=== PATIENT | female | born 1950 | race Caucasian/White ===

== ENCOUNTER 2016-08-31 16:09 | Inpatient (IN) | payer MEDICARE, BC ==
[~2016-08-31] VITALS: Ht 160 cm; Wt 48.0 kg
[~2016-08-31 16:09] MED LIST: ADV25050 INH; ALPR0.5T6 PO; ATOR10TA65 PO; BUPR1FIL3 SL; CALC-176 PO; CARI350T PO; CYCL1DRO OP; DULO60CA6 PO; IBUP800T25 PO; MONT10TA24 PO; MULT-552 PO; OMEG100016 PO; OMEP20CA9 PO; PRED20TA PO; PRIM250T37 PO; RALO60TA12 PO; THEOPHYLLINE PO; TIOT18CA IH; ZOLP5TAB7 PO
[2016-08-31] MEDS ORDERED: SOD CHLORIDE 0.9% 500 ML IV STA (16:36)
[2016-08-31] MEDS ORDERED: METHYLPREDNISOLONE 125 MG INJ IV STA (16:36)
[2016-08-31] MEDS ORDERED: ALBUTEROL 0.5% (NEB) 2.5 MG/0.5 ML AMP INH STA (16:36)
[2016-08-31] MEDS ORDERED: ALPR0.25 PO (16:57)
[2016-08-31] MEDS ORDERED: BUPR1FIL3 SL (16:58)
[2016-08-31] MEDS ORDERED: IBUP800T25 PO (16:59)
[2016-08-31 17:08] LABS: ADD SCAN DIFF NO
[2016-08-31 17:10] LABS: BASOPHILS % 0.5 % (0.0-2.0); EOSINOPHILS # 0.1 10^3/ul (0.0-0.5); EOSINOPHILS % 1.5 % (0.0-7.0); HEMATOCRIT 41.3 % (37.0-47.0); HEMOGLOBIN 14.2 g/dl (12.0-16.0); LYMPHOCYTES # 1.1 10^3/ul (0.8-2.9); LYMPHOCYTES % 14.1 % (15.0-51.0); MEAN CORPUSCULAR HEMOGLOBIN 33.7 pg (29.0-33.0); MEAN CORPUSCULAR HGB CONC 34.4 g/dl (32.0-37.0); MEAN CORPUSCULAR VOLUME 98.1 fl (82.0-101.0); MEAN PLATELET VOLUME 10.5 fl (7.4-10.4); MONOCYTES % 12.9 % (0.0-11.0); NEUTROPHIL # 5.5 10^3/ul (1.6-7.5); NEUTROPHILS % 69.2 % (39.0-77.0); PLATELET COUNT 206 10^3/UL (140-415); RED BLOOD COUNT 4.21 10^6/ul (4.20-5.40); RED CELL DISTRIBUTION WIDTH 13.2 % (11.5-14.5); WHITE BLOOD COUNT 7.9 10^3/ul (4.8-10.8)
[2016-08-31 17:21] LABS: CHLORIDE 95 mmol/L (97-110); POTASSIUM 3.9 mmol/L (3.5-5.1); SODIUM 133 mmol/L (135-144)
[2016-08-31 17:24] LABS: ANION GAP 17 (8-16); CARBON DIOXIDE 25 mmol/L (21-31); CREATININE 0.62 mg/dl (0.44-1.00)
[2016-08-31 17:25] LABS: BLOOD UREA NITROGEN 19 mg/dl (7-20); CALCIUM 9.2 mg/dl (8.4-10.2); GLUCOSE 109 mg/dl (70-220)
--- NOTE | 2016-08-31 17:31 | RADRPT ---
PROCEDURE: XR Chest. CLINICAL INDICATION: Chronic obstructive pulmonary disease. Asthma exacerbation TECHNIQUE: Portable AP semi erect view of the chest was obtained. COMPARISON: CT chest 11/22/2015 FINDINGS: The cardiomediastinal silhouette is within upper normal limits. Diffuse right lung infiltrates bear ing portion of the upper lobe is similar to the prior study with development of a left lower lobe in filtrate compared to the prior study concerning for pneumonia superimposed upon centrilobular emphys michael, hyperinflation of the lungs again identified. There is no evidence of pleural effusion or pneu mothorax. The osseous structures are intact with no evidence for acute abnormality. Calcification o f the aorta is again visible. RPTAT:HJJR IMPRESSION: Bilateral pulmonary infiltrates superimposed upon emphysema, the left lung infiltrate is new compare d to the CT of 11/22/2015 and cannot exclude bilateral pneumonia. Follow-up evaluation after medical therapy is recommended. Physician Akira Date Time Electronically viewed and signed by Ryan Klein Physician on 08/31/2016 17:31 JR/
[2016-08-31 17:34] LABS: B-TYPE NATRIURETIC PEPTIDE 546 PG/ML (0-125)
[2016-08-31 17:44] LABS: TROPONIN-I < 0.012 ng/ml (0.00-0.12)
[2016-08-31] MEDS ORDERED: CEFTRIAXONE 1 GM/50 ML (PMX) 50 ML IVPB STA (18:22)
[2016-08-31] MEDS ORDERED: AZITHROMYCIN 500MG/NS (PMX) 250 ML IV STA (18:22)
[2016-08-31] MEDS ORDERED: ACETAMINOPHEN 325 MG TAB PO PRN (20:00)
[2016-08-31] MEDS ORDERED: ONDANSETRON 4 MG INJ IV PRN (20:00)
--- NOTE | 2016-08-31 20:10 | ERA ---
ER Documentation Chief Complaint Date/Time DATE: 08/31/16 TIME: 20:04 Chief Complaint LOW O2 77% ON 5L NC, SENT FROM DR. ANDRE OFFICE. HX COPD HPI This is a 66-year-old female with a history of COPD and neurofibromatosis that was sent from her primary care doctor's office, Dr. Montes. The patient was having upper respiratory symptoms of difficulty breathing and had an oxygen saturation of 71% in the office. Patient's been having no chest pain or fever but has had a chronic cough that seems to be worse and is nonproductive. She says she has feels generalized weakness and some mild decrease in appetite. No hemoptysis, no abdominal pain vomiting diarrhea a decreased urine output. She does say that the breathing gets worse when she ambulates. ROS All systems reviewed and are negative except as per history of present illness. Medications Home Meds Reported Medications Ibuprofen* (Motrin*) 800 Mg Tab, 800 MG PO QAM Y for PAIN, TAB 08/31/16 Buprenorphine Hcl-Naloxone Hcl (Suboxone SL) 8-2 Mg Film, 1 FILM SL BID, FILM 08/31/16 Alprazolam* (Xanax*) 0.25 Mg Tablet, 0.25 MG PO QHS Y for ANXIETY, TAB 08/31/16 [place]-3 Fatty Acids ([place]-3) 1,000 Mg Capsule, 1000 MG PO DAILY 03/06/14 Calcium Cmb 2-Mag Cmb 12-Vit D3 (Calcium 500) 1 Each Tablet, 1 TAB PO BID, TAB 03/06/14 Multivitamins* (Once Daily*) 1 Tab Tablet, 1 TAB PO DAILY, TAB 03/06/14 Carisoprodol* (Soma*) 350 Mg Tablet, 350 MG PO QID Y for MUSCLE SPASMS, TAB 03/06/14 Zolpidem Tartrate* (Zolpidem Tartrate*) 5 Mg Tablet, 5 MG PO HS Y, TAB 03/06/14 Omeprazole* (Prilosec*) 20 Mg Capsule., 20 MG PO DAILY, CAP 03/06/14 Montelukast Sodium* (Montelukast Sodium*) 10 Mg Tablet, 10 MG PO HS, TAB 03/06/14 Atorvastatin Calcium (Atorvastatin Calcium) 10 Mg Tab, 10 MG PO HS, TAB 03/06/14 Primidone* (Mysoline*) 250 Mg Tablet, 250 MG PO QHS, TAB 03/06/14 Raloxifene Hcl* (Evista*) 60 Mg Tablet, 60 MG PO DAILY, TAB 03/06/14 Duloxetine Hcl* (Cymbalta*) 60 Mg Capsule.dr, 60 MG PO DAILY, CAP 03/06/14 Tiotropium [place]* (Spiriva*) 18 Mcg Cap.w.dev, 1 INH IH QHS, EA 03/06/14 Salmeterol Xinaf/Fluticasone* (Advair*) 250-50 Diskus Inhaler, 1 INH INH BID, INH 03/06/14 Cyclosporine (RESTASIS) 1 Each Droperette, 1 EACH OP BID 05/16/13 Discontinued Reported Medications Alprazolam* (Alprazolam*) 0.5 Mg Tablet, 0.5 MG PO QHS, TAB 11/21/15 Ibuprofen* (Motrin*) 800 Mg Tab, 800 MG PO BID Y for PAIN, TAB 03/06/14 Buprenorphine Hcl-Naloxone Hcl (Suboxone SL) 8-2 Mg Film, 2 FILM SL BID, FILM 03/06/14 Discontinued Scripts [Theophylline (Sr)] 300 MG TABSR No Conflict Check, 300 MG PO QHS for 30 Days, 2 Refills Prov:JOSE MONTES MD 11/25/15 Prednisone (Prednisone) 20 Mg Tab, 40 MG PO DAILY for 14 Days, TAB Prov:JOSE MONTES MD 11/25/15 Allergies Allergies: Coded Allergies: No Known Allergy (Unverified , 08/31/16) PMhx/Soc History of Surgery: Yes (1981, 2005) Anesthesia Reaction: No Hx Neurological Disorder: Yes (neurofibromatosis) Hx Respiratory Disorders: Yes (COPD) Hx Cardiac Disorders: No Hx Psychiatric Problems: No Hx Miscellaneous Medical Probl: No Hx Alcohol Use: No Hx Substance Use: No Hx Tobacco Use: No Smoking Status: Never smoker FmHx Family History: No coronary disease Physical Exam Vitals Vital Signs Date Time Temp Pulse Resp B/P Pulse Ox O2 Delivery O2 Flow Rate FiO2 08/31/16 17:08 Non Rebreather 15 08/31/16 16:45 66 26 100 Non Rebreather Mask 15.0 08/31/16 16:16 97.7 87 30 113/62 77 Physical Exam Const: Well-developed, well-nourished Head: Atraumatic, normocephalic Eyes: Normal Conjunctiva, PERRLA, EOMI, normal sclera, no nystagmus ENT: Normal External Ears, Nose and Mouth, moist mucus membranes. Neck: Full range of motion. No meningismus, no lymphadenopathy. Resp: Decreased breath sounds throughout both lung chirinos consistent with emphysema, she is currently on a nonrebreather says she feels much better] Cardio: Regular rate and rhythm, no murmurs, S1 S2 present Abd: Soft, non tender x 4, non distended. Normal bowel sounds, no guarding or rebound, no pulsitile abdominal masses or bruits Skin: No petechiae or rashes, no ecchymosis , no maculopapular rash, scattered neurofibromatosis nodules Back: No midline or flank tenderness Ext: No cyanosis, or edema, FROM x 4, normal inspection, neurovascularly intact x 4 Neur: Awake and alert, STR 5/5 x 4, sensation intact x 4, no focal findings, cerebellum intact Psych: Normal Mood and Affect Result Diagram: 08/31/16 1656 08/31/16 1656 Results 24 hrs Laboratory Tests Test 08/31/16 16:56 White Blood Count 7.910^3/ul Red Blood Count 4.2110^6/ul Hemoglobin 14.2g/dl Hematocrit 41.3% Mean Corpuscular Volume 98.1fl Mean Corpuscular Hemoglobin 33.7pg Mean Corpuscular Hemoglobin Concent 34.4g/dl Red Cell Distribution Width 13.2% Platelet Count 09121^3/UL Mean Platelet Volume 10.5fl Neutrophils % 69.2% Lymphocytes % 14.1% Monocytes % 12.9% Eosinophils % 1.5% Basophils % 0.5% Nucleated Red Blood Cells % 0.0/100WBC Neutrophils # 5.510^3/ul Lymphocytes # 1.110^3/ul Monocytes # 1.010^3/ul Eosinophils # 0.110^3/ul Basophils # 0.010^3/ul Nucleated Red Blood Cells # 0.010^3/ul Sodium Level 133mmol/L Potassium Level 3.9mmol/L Chloride Level 95mmol/L Carbon Dioxide Level 25mmol/L Anion Gap 17 Blood Urea Nitrogen 19mg/dl Creatinine 0.62mg/dl Glucose Level 109mg/dl Calcium Level 9.2mg/dl Troponin I < 0.012ng/ml B-Type Natriuretic Peptide 546PG/ML Current Medications Medications (Trade) Dose Ordered Sig/Adela Route PRN Reason Start Time Stop Time Status Last Admin Dose Admin Sodium Chloride (NS) 500 ml @ 500 mls/hr Q1H STAT IV 08/31/16 16:36 08/31/16 17:35 DC 08/31/16 17:00 Albuterol (Proventil 0.5% (Neb)) 10 mg ONCE STAT INH 08/31/16 16:36 08/31/16 16:39 DC 08/31/16 16:43 Methylprednisolone Sodium Succinate 125 mg 125 mg ONCE STAT IV 08/31/16 16:36 08/31/16 16:39 DC 08/31/16 17:01 Azithromycin 250 ml @ 250 mls/hr ONCE STAT IV 08/31/16 18:22 08/31/16 19:21 DC Ceftriaxone Sodium (Rocephin) 50 ml @ 100 mls/hr ONCE STAT IVPB 08/31/16 18:22 08/31/16 18:51 DC 08/31/16 19:29 Ondansetron HCl (Zofran Inj) 4 mg ER BRIDGE PRN IV NAUSEA AND/OR VOMITING 08/31/16 20:00 09/01/16 19:59 Acetaminophen (Tylenol Tab) 650 mg ER BRIDGE PRN PO MILD PAIN/FEVER 08/31/16 20:00 09/01/16 19:59 Procedures/MDM PROCEDURE: XR Chest. CLINICAL INDICATION: Chronic obstructive pulmonary disease. Asthma exacerbation TECHNIQUE: Portable AP semi erect view of the chest was obtained. COMPARISON: CT chest 11/22/2015 FINDINGS: The cardiomediastinal silhouette is within upper normal limits. Diffuse right lung infiltrates bearing portion of the upper lobe is similar to the prior study with development of a left lower lobe infiltrate compared to the prior study concerning for pneumonia superimposed upon centrilobular emphysema, hyperinflation of the lungs again identified. There is no evidence of pleural effusion or pneumothorax. The osseous structures are intact with no evidence for acute abnormality. Calcification of the aorta is again visible. RPTAT:HJJR IMPRESSION: Bilateral pulmonary infiltrates superimposed upon emphysema, the left lung infiltrate is new compared to the CT of 11/22/2015 and cannot exclude bilateral pneumonia. Follow-up evaluation after medical therapy is recommended. Ryan Klein Physician Date Time Electronically viewed and signed by Ryan Klein Physician on 08/31/2016 17:31 JR/ CC: MENDOZA BAUTISTA DO Patient was given an hour-long 10 mg albuterol nebulizer. After this I was able to wean her off of the nonrebreather she is currently on a nasal cannula 3 L with oxygen saturations of 93-94%. She is not in any respiratory distress that she feels much better. She does however have bilateral patchy infiltrates consistent with pneumonia. She has had blood cultures and antibiotics have been given She is very well-appearing vital signs are stable. She is not toxic or septic appearing and does not meet sepsis criteria Spoke with her primary care physician and we will admit to the hospital Departure Diagnosis: Primary Impression: Community acquired pneumonia Condition: Stable MENDOZA BAUTISTA DO Aug 31, 2016 20:10
[2016-08-31 21:04] VITALS: TEMP 97.7
[2016-08-31] MEDS: AZITHROMYCIN 500MG/NS (PMX) 250 ML IV SCH (22:00)
[2016-08-31] MEDS: SALMETEROL/FLUTICASONE 250/50 INHA INH SCH (22:00)
[2016-08-31] MEDS ORDERED: [UNRECOGNIZED DRUG - OTHER] SL SCH (22:00)
[2016-08-31] MEDS ORDERED: NACL 0.9% 3 ML SYG IV SCH (22:00)
[2016-08-31] MEDS: CEFTRIAXONE 1 GM/50 ML (PMX) 50 ML IV SCH (22:00)
[2016-08-31] MEDS ORDERED: SODIUM CHLORIDE 0.9% 1L BAG IV SCH (22:00)
[2016-08-31 22:50] VITALS: PULSE 75
[2016-08-31 22:51] VITALS: Ht 160 cm; Wt 48.0 kg
[2016-08-31 22:56] VITALS: BP 128/63; PULSE 77; RESP 22
[2016-08-31] MEDS: HEPARIN 5,000 UNIT/0.5 ML VIAL SC SCH (23:28)
[2016-09-01] VITALS (13 sets, daily range): BP systolic 102–109; BP diastolic 55–62; PULSE 62–75; RESP 17–20
[2016-09-01] MEDS: ALPRAZOLAM 0.25 MG TAB PO PRN (00:32)
[2016-09-01] MEDS: ALBUTEROL/IPRATROPIUM (NEB) 3 ML AMP NEB SCH ×6 (01:00→20:42)
[2016-09-01 07:26] LABS: ADD SCAN DIFF NO
[2016-09-01 07:54] LABS: ALBUMIN 3.1 g/dl (3.3-4.9); ALBUMIN/GLOBULIN RATIO 0.96; BILIRUBIN,INDIRECT 0.1 mg/dl (0-1.1); BILIRUBIN,TOTAL 0.1 mg/dl (0.2-1.3); CALCIUM 8.3 mg/dl (8.4-10.2); CREATININE 0.45 mg/dl (0.44-1.00); POTASSIUM 4.2 mmol/L (3.5-5.1); TOTAL PROTEIN 6.3 g/dl (6.1-8.1)
[2016-09-01] MEDS: MULTIVITAMINS THERAPEUTIC TAB PO SCH (08:54)
[2016-09-01] MEDS: FAMOTIDINE 20 MG TAB PO SCH ×2 (08:55→20:52)
[2016-09-01] MEDS: CYCLOSPORINE 0.05% OPH DROPERETTE BOTH EYES SCH ×2 (08:57→20:55)
[2016-09-01] MEDS: SALMETEROL/FLUTICASONE 250/50 INHA INH SCH ×2 (08:57→20:54)
[2016-09-01] MEDS: predniSONE 20 MG TAB PO SCH (08:58)
[2016-09-01] MEDS: DULOXETINE 30 MG CAP DR PO SCH (08:58)
[2016-09-01] MEDS: RALOXIFENE 60 MG TAB PO SCH (08:58)
[2016-09-01] MEDS ORDERED: FISH OIL 1,000 MG CAP PO SCH (09:00)
[2016-09-01] MEDS ORDERED: OMEGA PO SCH (09:00)
[2016-09-01] MEDS ORDERED: FATTY ACIDS PO SCH (09:00)
[2016-09-01] MEDS: HEPARIN 5,000 UNIT/0.5 ML VIAL SC SCH ×2 (09:02→21:25)
[2016-09-01] MEDS: CARISOPRODOL 350 MG TAB PO PRN ×2 (10:57→21:09)
[2016-09-01 11:09] LABS: BASOPHIL # 0.1 10^3/ul (0.0-0.1); BASOPHILS % 0.8 % (0.0-2.0); EOSINOPHILS # 0.1 10^3/ul (0.0-0.5); EOSINOPHILS % 0.8 % (0.0-7.0); HEMATOCRIT 37.8 % (37.0-47.0); HEMOGLOBIN 12.9 g/dl (12.0-16.0); LYMPHOCYTES # 1.4 10^3/ul (0.8-2.9); LYMPHOCYTES % 22.3 % (15.0-51.0); MEAN CORPUSCULAR HEMOGLOBIN 33.6 pg (29.0-33.0); MEAN CORPUSCULAR HGB CONC 34.1 g/dl (32.0-37.0); MEAN CORPUSCULAR VOLUME 98.4 fl (82.0-101.0); MEAN PLATELET VOLUME 10.9 fl (7.4-10.4); MONOCYTE # 0.6 10^3/ul (0.3-0.9); MONOCYTES % 10.1 % (0.0-11.0); NEUTROPHIL # 3.9 10^3/ul (1.6-7.5); NEUTROPHILS % 63.7 % (39.0-77.0); PLATELET COUNT 188 10^3/UL (140-415); RED BLOOD COUNT 3.84 10^6/ul (4.20-5.40); RED CELL DISTRIBUTION WIDTH 13.3 % (11.5-14.5); WHITE BLOOD COUNT 6.1 10^3/ul (4.8-10.8)
--- NOTE | 2016-09-01 15:01 | HP ---
DATE OF ADMISSION: 08/31/2016 HISTORY OF PRESENT ILLNESS: This is one of many [facility] admissions for this 66 -year-old, , right-handed female. She has a history of chronic obstructive pulmona ry disease as well as neurofibromatosis. She had been in her usual state of health until roughly 3 to 4 days prior to admission, when she developed worsening cough with low-grade fevers. The cough i s nonproductive, but she has developed much more weakness. She is somewhat a stoic historian and moreno richey did admit that she was feeling a bit weaker than typical and short of breath. Pulse oximet ry in my office was 71%. She was transferred over to the emergency room where she is found to have pneumonia. PAST MEDICAL HISTORY: 1. Bullous emphysematous chronic obstructive pulmonary disease. 2. History of right lung pneumonia with effusion in 11/2012. 3. History of pneumonia 2015. 4. Osteoporosis. 5. Osteoarthritis/DJD. 6. Status post lumbar spine laminectomy L4 to L5. 7. Status post anterior and posterior lumbar spine fusion L4 to L5. 8. Status post removal of hardware from the lumbar spine 2007. 9. Status post cervical spine fusion at C6 to C7. 10. Neurofibromatosis type 1. 11. G1, P1, AB 0. 12. Usual childhood diseases. 13. History of varicella. 14. Chronic pain syndrome. 15. Benzodiazepine dependency. HABITS: She had previously smoked, but quit in 2002. No alcohol, no history of IV drugs. SOCIAL HISTORY: She was born in [place] and raised there. 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 She has been for 44 years and lives with her spouse. VACCINES: She had pneumococcal vaccine in 2010 and tetanus vaccine in 2013. FAMILY HISTORY: Negative for coronary artery disease, negative for hypertension, positive for neuro fibromatosis, negative for diabetes, negative for COPD, and negative for asthma. MEDICATIONS: Her outpatient medication regimen is: 1. Alprazolam 0.25 at bedtime. 2. Atorvastatin 10 mg a day. 3. Suboxone 8 films b.i.d. 4. Calcium with D twice a day. 5. Soma 350 p.r.n. 6. Cyclosporine eyedrops 1 drop in each eye b.i.d. 7. Cymbalta 60 mg a day. 8. Ibuprofen 800 p.r.n. 9. Montelukast 10 mg a day. 10. Advair 250/50 b.i.d. 11. Spiriva 18 mcg once a day. 12. Multivitamins once a day. 13. [place]-3 fish oil 1 gram daily. 14. Omeprazole 20 mg a day. 15. Mysoline 250 at bedtime. 16. Evista 60 mg a day. 17. Ambien 5 mg p.r.n. PHYSICAL EXAMINATION: GENERAL: At time of physical exam, she is a dignified female who appears in some distress and does not appear herself. VITAL SIGNS: She had a temperature of 98.2, pulse of 68, respirations were 24 prior to breathing tr eatment, blood pressure 106/59. HEENT: NC/AT; PERRL, EOMI, anicteric, fundi were not visualized. Tympanic membranes were without n ote. Oropharynx demonstrates no lesions. NECK: Supple. There is a midline trachea. There is no thyromegaly; pulses are 2+ without bruits RESPIRATORY: Demonstrates an increased AP diameter, decreased I:E ratio, expanded airspaces, some c rackles in the right mid lung field and decreased air movement versus her baseline. CARDIAC: Demonstrates no visible JVD, a regular rate and rhythm. PMI is discrete but medially and caudally displaced. ABDOMEN: Soft, nontender, active bowel sounds. No hepatosplenomegaly. No CVA tenderness. No morelia ias. No bruits. EXTREMITIES: Demonstrate no clubbing, cyanosis, or edema. LABORATORY DATA: Please see the chest x-ray report and the blood test reports. ASSESSMENT AND PLAN: 1. Bullous emphysema - chronic obstructive pulmonary disease, pink puffer type. She comes in with pneumonia which is exacerbating her breathing issues. She will be given steroids, breathing treatme nts, aggressive antibiotics and oxygen supplementation. She is not stable to go home at the present time. 2. Neurofibromatosis type 1. This is noted. 3. Chronic pain syndrome. She will be continued on her pain relieving medication regimen. Dictated By: JOSE GIL MD, JR/DEVIN Conf#: [id number] DID#: [id number]
[2016-09-01] MEDS: ATORVASTATIN 10 MG TAB PO SCH (20:51)
[2016-09-01] MEDS: MONTELUKAST 10 MG TAB PO SCH (20:52)
[2016-09-01] MEDS: FISH OIL 1,000 MG CAP PO SCH (20:52)
[2016-09-01] MEDS: CALCIUM/VITAMIN D (500/200) TAB PO SCH (20:52)
[2016-09-01] MEDS: THEOPHYLLINE (SR) 200 MG CAPSR PO SCH (20:53)
[2016-09-01] MEDS: TIOTROPIUM 18 MCG CAPSULE INHA DEV INH SCH (20:54)
[2016-09-01] MEDS: PRIMIDONE 250 MG TAB PO SCH (21:01)
[2016-09-01] MEDS: AZITHROMYCIN 500MG/NS (PMX) 250 ML IV SCH (21:09)
[2016-09-01] MEDS: CEFTRIAXONE 1 GM/50 ML (PMX) 50 ML IV SCH (22:47)
[2016-09-02] VITALS (12 sets, daily range): BP systolic 104–131; BP diastolic 58–72; PULSE 63–88; RESP 19–20
[2016-09-02] MEDS: ALPRAZOLAM 0.25 MG TAB PO PRN ×2 (00:10→21:43)
[2016-09-02] MEDS: ALBUTEROL/IPRATROPIUM (NEB) 3 ML AMP NEB SCH ×6 (00:57→21:00)
[2016-09-02] MEDS: FISH OIL 1,000 MG CAP PO SCH ×2 (09:05→21:41)
[2016-09-02] MEDS: SALMETEROL/FLUTICASONE 250/50 INHA INH SCH ×2 (09:05→21:38)
[2016-09-02] MEDS: MULTIVITAMINS THERAPEUTIC TAB PO SCH (09:05)
[2016-09-02] MEDS: predniSONE 20 MG TAB PO SCH (09:05)
[2016-09-02] MEDS: FAMOTIDINE 20 MG TAB PO SCH ×2 (09:06→21:41)
[2016-09-02] MEDS: CALCIUM/VITAMIN D (500/200) TAB PO SCH ×2 (09:06→21:41)
[2016-09-02] MEDS: DULOXETINE 30 MG CAP DR PO SCH (09:06)
[2016-09-02] MEDS: HEPARIN 5,000 UNIT/0.5 ML VIAL SC SCH ×2 (09:20→21:55)
[2016-09-02] MEDS: CARISOPRODOL 350 MG TAB PO PRN ×2 (09:21→21:42)
[2016-09-02] MEDS: CYCLOSPORINE 0.05% OPH DROPERETTE BOTH EYES SCH ×2 (10:18→21:39)
[2016-09-02] MEDS: RALOXIFENE 60 MG TAB PO SCH (10:18)
[2016-09-02] MEDS: [UNRECOGNIZED DRUG - REMARK] XX SCH ×2 (10:22→17:28)
--- NOTE | 2016-09-02 18:09 | PN ---
Date/Time of Note Date/Time of Note DATE: 09/02/16 TIME: 18:07 Assessment/Plan VTE Prophylaxis VTE Prophylaxis Intervention: anti-embolic stocking Lines/Catheters IV Catheter Type (from [facility]): Saline Lock Urinary Cath still in place: No Assessment/Plan Problems: (1) Emphysematous COPD Status: Chronic Comment: She is doing better on full dose treatment. Antibiotics are helping to clear the pneumonia Qualifiers: Emphysema type: panlobular Qualified Code: J43.1 - Panlobular emphysema (2) Neurofibromatosis (nonmalignant) Status: Chronic Comment: Noted and stable (3) Community acquired pneumonia Status: Acute Comment: Improving clinically and by observation medically. Continue care plan for discharge in the morning Subjective 24 Hr Interval Summary Free Text/Dictation Patient is feeling significantly better today. She requests to be discharged in the morning. Constitutional: no complaints Respiratory: cough, shortness of breath (Improved) Cardiovascular: no complaints Gastrointestinal: no complaints Exam/Review of Systems Vital Signs Vitals Vital Signs Date Time Temp Pulse Resp B/P Pulse Ox O2 Delivery O2 Flow Rate FiO2 09/02/16 17:14 4.0 09/02/16 17:12 68 20 95 Nasal Cannula 09/02/16 16:30 98.4 108/72 Intake and Output 09/01/16 09/01/16 09/02/16 15:00 23:00 07:00 Intake Total 480 ml 500 ml Balance 480 ml 500 ml Exam Constitutional: alert, oriented Respiratory: crackles/rales, diminished breath sounds Cardiovascular: nl pulses, regular rate and rhythm Results Result Diagram: 09/01/16 0900 09/01/16 0659 Medications Medications Current Medications Prednisone 40 mg 40 mg DAILY PO Last administered on 09/02/16 09:05; Admin Dose 40 MG; Start 09/01/16 at 09:00 Azithromycin 250 ml @ 250 mls/hr Q24H IV Last administered on 09/01/16 21:09 ; Admin Dose 250 MLS/HR; Start 08/31/16 at 22:00; Stop 09/03/16 at 21:59 Ceftriaxone Sodium (Rocephin) 50 ml @ 100 mls/hr Q24H IV Last administered on 09/01/16 22:47; Admin Dose 100 MLS/HR; Start 08/31/16 at 22:00 Famotidine (Pepcid) 20 mg Q12 PO Last administered on 09/02/16 09:06; Admin Dose 20 MG; Start 09/01/16 at 09:00 Heparin Sodium (Porcine) (Heparin (5000 Units/0.5 ml)) 5,000 unit Q12 SC Last administered on 09/02/16 09:20; Admin Dose 5,000 UNIT; Start 08/31/16 at 22:00 Alprazolam (Xanax) 0.25 mg QHS PRN PO ANXIETY Last administered on 09/02/16 00 :10; Admin Dose 0.25 MG; Start 08/31/16 at 22:00 Atorvastatin Calcium (Lipitor) 10 mg HS PO Last administered on 09/01/16 20:51 ; Admin Dose 10 MG; Start 09/01/16 at 21:00 Carisoprodol (Soma) 350 mg QID PRN PO MUSCLE SPASMS Last administered on 09:21; Admin Dose 350 MG; Start 08/31/16 at 22:00 Cyclosporine (Restasis) 1 drop BID BOTH EYES Last administered on 09/02/16 10: 18; Admin Dose 1 DROP; Start 09/01/16 at 09:00 Duloxetine HCl (Cymbalta) 60 mg DAILY PO Last administered on 09/02/16 09:06; Admin Dose 60 MG; Start 09/01/16 at 09:00 Montelukast Sodium (Singulair) 10 mg HS PO Last administered on 09/01/16 20:52 ; Admin Dose 10 MG; Start 09/01/16 at 21:00 Multivitamins Therapeutic (Theragran) 1 tab DAILY PO Last administered on 09:05; Admin Dose 1 TAB; Start 09/01/16 at 09:00 Primidone (Mysoline) 250 mg QHS PO Last administered on 09/01/16 21:01; Admin Dose 250 MG; Start 09/01/16 at 21:00 Raloxifene HCl (Evista) 60 mg DAILY PO Last administered on 09/02/16 10:18; Admin Dose 60 MG; Start 09/01/16 at 09:00 Salmeterol Xinafoate/ Fluticasone (Advair 250/50 Diskus) 1 inh BID INH Last administered on 09/02/16 09:05; Admin Dose 1 INH; Start 08/31/16 at 22:00 Tiotropium [place] (Spiriva) 1 inh QHS INH Last administered on 09/01/16 20:54 ; Admin Dose 1 INH; Start 09/01/16 at 21:00 Miscellaneous Information 1 film BID SL ; Start 08/31/16 at 22:00; Status UNV Calcium/Vitamin D ([place]/ Vit-D (500/200)) 1 tab BID PO Last administered on 09/02/16 09:06; Admin Dose 1 TAB; Start 09/01/16 at 21:00 Fish Oil (Fish Oil) 1,000 mg BID PO Last administered on 09/02/16 09:05; Admin Dose 1,000 MG; Start 09/01/16 at 21:00 Theophylline (Blanco-24) 200 mg QHS PO Last administered on 09/01/16 20:53; Admin Dose 200 MG; Start 09/01/16 at 21:00 Miscellaneous Information (*Order Clarification Bulletin) MEDICATION REQUIRES CLARIFICATION: Q8H XX ; Start 09/02/16 at 08:00 JOSE GIL MD Sep 02, 2016 18:09
[2016-09-02] MEDS: TIOTROPIUM 18 MCG CAPSULE INHA DEV INH SCH (21:39)
[2016-09-02] MEDS: ATORVASTATIN 10 MG TAB PO SCH (21:41)
[2016-09-02] MEDS: PRIMIDONE 250 MG TAB PO SCH (21:42)
[2016-09-02] MEDS: LEVOFLOXACIN 500 MG TAB PO SCH (21:42)
[2016-09-02] MEDS: MONTELUKAST 10 MG TAB PO SCH (21:43)
[2016-09-02] MEDS: CEFTRIAXONE 1 GM/50 ML (PMX) 50 ML IV SCH (21:43)
[2016-09-02] MEDS: AZITHROMYCIN 500MG/NS (PMX) 250 ML IV SCH (21:43)
[2016-09-02] MEDS: THEOPHYLLINE (SR) 200 MG CAPSR PO SCH (23:21)
[2016-09-03 01:02] VITALS: PULSE 74
[2016-09-03 04:39] VITALS: PULSE 67
[2016-09-03 05:00] VITALS: BP 137/74; PULSE 76; RESP 20
[2016-09-03] MEDS: LEVOFLOXACIN 500 MG TAB PO SCH (06:10)
[2016-09-03 07:39] VITALS: BP 125/87; RESP 20
[2016-09-03] MEDS: [UNRECOGNIZED DRUG - REMARK] XX SCH ×2 (08:00)
[2016-09-03 08:21] VITALS: PULSE 61
--- NOTE | 2016-09-03 08:24 | PDOCDIS ---
Discharge Instructions DIAGNOSIS Discharge Diagnosis: Right lung pneumonia; emphysematous COPD; neurofibromatosis CONDITION Patient Condition: Fair HOME CARE INSTRUCTIONS: Special Diet: regular ACTIVITY: Activity Restrictions: Slowly Increase Activity Avoid heavy lifting Do not operate Machinery Do not operate Power Tool FOLLOW UP/APPOINTMENTS Appointments Dr. Montes in his office in 2 weeks JOSE MONTES MD Sep 03, 2016 08:24
[2016-09-03] MEDS ORDERED: THEO200C3 PO (08:25)
[2016-09-03] MEDS ORDERED: PRED20TA PO (08:25)
[2016-09-03] MEDS ORDERED: LEVO500T72 PO (08:25)
--- NOTE | 2016-09-03 08:28 | DS ---
Date/Time of Note Date/Time of Note DATE: 09/03/16 TIME: 08:26 Discharge Summary Admission/Discharge Info Admit Date/Time Aug 31, 2016 at 20:00 Discharge Date/Time 09/03/2016 Final Diagnosis Right lung pneumonia; emphysematous bullous COPD; neurofibromatosis type I; anxiety disorder; hyperlipidemia Patient Condition: Fair Procedures Respiratory therapy Hx of Present Illness his is one of many [facility] admissions for this 66-year-old , , right-handed female. She has a history of chronic obstructive pulmonary disease as well as neurofibromatosis. She had been in her usual state of health until roughly 3 to 4 days prior to admission, when she developed worsening cough with low-grade fevers. The cough is nonproductive , but she has developed much more weakness. She is somewhat a stoic historian and ultimately did admit that she was feeling a bit weaker than typical and short of breath. Pulse oximetry in my office was 71%. She was transferred over to the emergency room where she is found to have pneumonia. This is a 66-year-old female with a history of COPD and neurofibromatosis that was sent from her primary care doctor's office, Dr. Montes. The patient was having upper respiratory symptoms of difficulty breathing and had an oxygen saturation of 71% in the office. Patient's been having no chest pain or fever but has had a chronic cough that seems to be worse and is nonproductive. She says she has feels generalized weakness and some mild decrease in appetite. No hemoptysis, no abdominal pain vomiting diarrhea a decreased urine output. She does say that the breathing gets worse when she ambulates. Hospital Course Patient was admitted to the hospital placed on aggressive IV antibiotic therapy including azithromycin and ceftriaxone. She steadily improved rapidly to her baseline state. She is now at a point where she is able to manage her own affairs. As such she is now stable for discharge. She will be discharged home in improved condition as compared to the time of admission she has no known communicable diseases she is not hazard to herself or others her rehabilitation potential is fair. She will be on continuous oxygen therapy which she was on before coming to the hospital. Home Meds Active Scripts Theophylline Anhydrous* (Blanco-24*) 200 Mg Cap.sr.24h, 200 MG PO QHS for 30 Days , 1 Refill Prov:JOSE MONTES MD 09/03/16 Prednisone* (Prednisone*) 20 Mg Tab, 40 MG PO DAILY for 5 Days, TAB Prov:JOSE MONTES MD 09/03/16 Levofloxacin* (Levaquin*) 500 Mg Tablet, 500 MG PO DAILY@06 for 5 Days, TAB Prov:JOSE MONTES MD 09/03/16 Reported Medications Ibuprofen* (Motrin*) 800 Mg Tab, 800 MG PO QAM Y for PAIN, TAB 08/31/16 Buprenorphine Hcl-Naloxone Hcl (Suboxone SL) 8-2 Mg Film, 1 FILM SL BID, FILM 08/31/16 Alprazolam* (Xanax*) 0.25 Mg Tablet, 0.25 MG PO QHS Y for ANXIETY, TAB 08/31/16 [place]-3 Fatty Acids ([place]-3) 1,000 Mg Capsule, 1000 MG PO DAILY 03/06/14 Calcium Cmb 2-Mag Cmb 12-Vit D3 (Calcium 500) 1 Each Tablet, 1 TAB PO BID, TAB 03/06/14 Multivitamins* (Once Daily*) 1 Tab Tablet, 1 TAB PO DAILY, TAB 03/06/14 Carisoprodol* (Soma*) 350 Mg Tablet, 350 MG PO QID Y for MUSCLE SPASMS, TAB 03/06/14 Zolpidem Tartrate* (Zolpidem Tartrate*) 5 Mg Tablet, 5 MG PO HS Y, TAB 03/06/14 Omeprazole* (Prilosec*) 20 Mg Capsule.dr, 20 MG PO DAILY, CAP 03/06/14 Montelukast Sodium* (Montelukast Sodium*) 10 Mg Tablet, 10 MG PO HS, TAB 03/06/14 Atorvastatin Calcium (Atorvastatin Calcium) 10 Mg Tab, 10 MG PO HS, TAB 03/06/14 Primidone* (Mysoline*) 250 Mg Tablet, 250 MG PO QHS, TAB 03/06/14 Raloxifene Hcl* (Evista*) 60 Mg Tablet, 60 MG PO DAILY, TAB 03/06/14 Duloxetine Hcl* (Cymbalta*) 60 Mg Capsule.dr, 60 MG PO DAILY, CAP 03/06/14 Tiotropium [place]* (Spiriva*) 18 Mcg Cap.w.dev, 1 INH IH QHS, EA 03/06/14 Salmeterol Xinaf/Fluticasone* (Advair*) 250-50 Diskus Inhaler, 1 INH INH BID, INH 03/06/14 Cyclosporine (RESTASIS) 1 Each Droperette, 1 EACH OP BID 05/16/13 Discontinued Reported Medications Alprazolam* (Alprazolam*) 0.5 Mg Tablet, 0.5 MG PO QHS, TAB 11/21/15 Ibuprofen* (Motrin*) 800 Mg Tab, 800 MG PO BID Y for PAIN, TAB 03/06/14 Buprenorphine Hcl-Naloxone Hcl (Suboxone SL) 8-2 Mg Film, 2 FILM SL BID, FILM 03/06/14 Discontinued Scripts [Theophylline (Sr)] 300 MG TABSR No Conflict Check, 300 MG PO QHS for 30 Days, 2 Refills Prov:JOSE MONTES MD 11/25/15 Prednisone (Prednisone) 20 Mg Tab, 40 MG PO DAILY for 14 Days, TAB Prov:JOSE MONTES MD 11/25/15 JOSE MONTES MD Sep 03, 2016 08:28
[2016-09-03] MEDS: CYCLOSPORINE 0.05% OPH DROPERETTE BOTH EYES SCH (08:54)
[2016-09-03] MEDS: predniSONE 20 MG TAB PO SCH (08:55)
[2016-09-03] MEDS: CALCIUM/VITAMIN D (500/200) TAB PO SCH (08:55)
[2016-09-03] MEDS: SALMETEROL/FLUTICASONE 250/50 INHA INH SCH (08:55)
[2016-09-03] MEDS: FISH OIL 1,000 MG CAP PO SCH (08:55)
[2016-09-03] MEDS: DULOXETINE 30 MG CAP DR PO SCH (08:55)
[2016-09-03] MEDS: FAMOTIDINE 20 MG TAB PO SCH (08:55)
[2016-09-03] MEDS: MULTIVITAMINS THERAPEUTIC TAB PO SCH (08:55)
[2016-09-03] MEDS: RALOXIFENE 60 MG TAB PO SCH (08:56)
[2016-09-03] MEDS: HEPARIN 5,000 UNIT/0.5 ML VIAL SC SCH (09:00)
[2016-09-03] MEDS: CARISOPRODOL 350 MG TAB PO PRN (09:06)
[2016-09-03 12:21] VITALS: PULSE 66
[2016-09-04 13:00] LABS: H1N1 2009 FLU A RNA NOT DETECTED; H1N1 2009 SOURCE SWAB
== END 2016-09-03 14:25 | disposition home or self-care (01) | DRG 194 ==
LOC: E/R 16:09 → TEL 20:00
PROVIDERS: ADMIT Internal Medicine; ATTEND Internal Medicine
PROC: 3E0F73Z Introduction of Anti-inflammatory into Respiratory Tract, Via Natural or Artificial Opening (ICD-10-PCS; principal; 2016-08-31)
DX: J18.9 Pneumonia, unspecified organism (principal); E87.1 Hypo-osmolality and hyponatremia; J44.9 Chronic obstructive pulmonary disease, unspecified; J43.1 Panlobular emphysema; Y95 Nosocomial condition; F41.9 Anxiety disorder, unspecified; E78.5 Hyperlipidemia, unspecified; G89.4 Chronic pain syndrome; Q85.01 Neurofibromatosis, type 1; Z87.891 Personal history of nicotine dependence
CPT/HCPCS: 71010; 80048; 80053; 80198; 83880; 84484; 85025; 87040; 87400; 87502; 93005; 94640; 94644; 94664; 96374; 96375; J0456; J0696; J1644; J2930; J7030; J7040; J7512

== ENCOUNTER 2017-06-01 18:11 | Observation (INO) | END 2017-06-03 14:55 | disposition home or self-care (01) ==